=== PATIENT | female | born 1940 | race Caucasian/White ===

== ENCOUNTER 2017-09-22 15:20 | Inpatient (IN) | payer BC, MEDICARE ==
[2017-09-22] MEDS ORDERED: 0.9 % SODIUM CHLORIDE 1,000 ML BAG IV ONE (15:51)
[2017-09-22] MEDS ORDERED: ONDANSETRON HCL IV 4 MG/2 ML VIAL IVP ONE (15:58)
[2017-09-22] MEDS ORDERED: HYDROMORPHONE HCL 2 MG/ML VIAL IVP ONE ×2 (15:58→16:57)
--- NOTE | 2017-09-22 16:20 | Emergency Department Record ---
History of Present Illness - General Chief complaint: Pain Stated complaint: CANCER PAIN Time Seen by Provider: 09/22/17 15:22 Mode of Arrival: Stretcher - History of Present Illness Initial comments: patient having vaginal and lower abd pain and she has a uterine tumor Onset/Timin -: Week(s) Severity scale (1-10): 10 Consistency: Constant Improves with: Nothing Worsens with: Nothing Associated Symptoms: Denies other symptoms - Related Data Home Medications Medication Instructions Recorded Confirmed Last Taken Amitriptyline HCl [Elavil] 25 mg PO QPM 09/22/17 09/22/17 Unknown Cranberry 400 mg PO QPM 09/22/17 09/22/17 Unknown Diazepam [Valium] 5 mg PO QPM 09/22/17 09/22/17 Unknown Hydrochlorothiazide [Hctz] 25 mg PO QAM 09/22/17 09/22/17 Unknown Lactulose 10 gm PO TID 09/22/17 09/22/17 Unknown Magnesium 200 mg PO DAILY 09/22/17 09/22/17 Unknown Metaxalone [Skelaxin] 800 mg PO QPM 09/22/17 09/22/17 Unknown [place]-3 Fatty Acids/Fish Oil [Fish 1 each PO QPM 09/22/17 09/22/17 Unknown Oil 1,000 mg Capsule] Oxycodone HCl 15 mg PO Q4H 09/22/17 09/22/17 Unknown Previous Rx's Medication Instructions Recorded Oxycodone HCl [Oxycodone HCl ER] 10 mg PO Q12H #60 tab.er 09/22/17 Allergies Allergy/AdvReac Type Severity Reaction Status Date / Time Beta-Blockers Allergy Intermediate DIFFICULTY Verified 09/22/17 15:27 (Beta-Adrenergic Bloc BREATHING sulfasalazine Allergy Intermediate DIFFICULTY Verified 09/22/17 15:27 BREATHING Travel Screening - Travel/Exposure Within Last 30 Days Have you traveled within the last 30 days?: No Review of Systems Reviewed: No additional complaints except as noted below Constitutional: Reports: As per HPI. Denies: Chills, Fever, Malaise, Night sweats, Weakness, Weight change Eyes: Reports: As per HPI. Denies: Eye discharge, Eye pain, Photophobia, Vision change ENT: Reports: As per HPI. Denies: Congestion, Dental pain, Ear pain, Epistaxis , Hearing loss, Throat pain Respiratory: Reports: As per HPI. Denies: Cough, Dyspnea, Hemoptysis, Stridor, Wheezes Cardiovascular: Reports: As per HPI. Denies: Arrhythmia, Chest pain, Dyspnea on exertion, Edema, Murmurs, Orthopnea, Palpitations, Paroxysmal nocturnal dyspnea, Rheumatic Fever, Syncope Endocrine: Reports: As per HPI. Denies: Fatigue, Heat or cold intolerance, Polydipsia, Polyuria Gastrointestinal: Reports: As per HPI. Denies: Abdominal pain, Constipation, Diarrhea, Hematemesis, Hematochezia, Melena, Nausea, Vomiting Genitourinary: Reports: As per HPI. Denies: Abnormal menses, Discharge, Dyspareunia, Dysuria, Frequency, Hematuria, Incontinence, Retention, Urgency Musculoskeletal: Reports: As per HPI. Denies: Arthralgia, Back pain, Gout, Joint swelling, Myalgia, Neck pain Skin: Reports: As per HPI. Denies: Bruising, Change in color, Change in hair/ nails, Lesions, Pruritus, Rash Neurological: Reports: As per HPI. Denies: Abnormal gait, Confusion, Headache, Numbness, Paresthesias, Seizure, Tingling, Tremors, Vertigo, Weakness Psychiatric: Reports: As per HPI. Denies: Anxiety, Auditory hallucinations, Depression, Homicidal thoughts, Suicidal thoughts, Visual hallucinations Hematological/Lymphatic: Reports: As per HPI. Denies: Anemia, Blood Clots, Easy bleeding, Easy bruising, Swollen glands Past Medical History - SOCIAL HISTORY Smoking Status: Never smoker Alcohol Use: None Drug Use: None - RESPIRATORY Hx Respiratory Disorders: Yes Hx Dyspnea: Yes (on exertion) Hx Sleep Apnea: Yes Hx of CPAP: Yes - CARDIOVASCULAR Hx Cardio Disorders: Yes Hx Abnormal EKG: Yes Hx Hypertension: Yes Hx Irregular Heartbeat: Yes (Afib, PVC's) - NEURO Hx Neuro Disorders: Yes Hx Neuropathy: Yes (C3-C4 right side) - GI Hx GI Disorders: Yes Hx Reflux: Yes (barretts) Hx Liver Disease: Yes (mass) - Hx Genitourinary Disorders: Yes Hx Bladder Problem: Yes (Stress incont.) - ENDOCRINE Hx Endocrine Disorders: Yes Hx Thyroid Disease: Yes (Hypotyroid) - MUSCULOSKELETAL Hx Musculoskeletal Disorders: Yes Hx Arthritis: Yes Hx Back Injury: Yes Hx Osteoporosis: Yes - PSYCH Hx Psych Problems: Yes Hx Depression: Yes - HEMATOLOGY/ONCOLOGY Hx Hematology/Oncology Disorders: Yes Hx Anemia: Yes Hx Chemotherapy: Yes (04/24/16, endometrial) Family Medical History Any Significant Family History?: Yes Hx Anxiety: Brother/Sister Hx Cancer: Grandparents Hx Heart Disease: Father, Mother Hx HTN: Father, Mother Physical Exam - General General Appearance: Alert, Oriented x3, Cooperative, No acute distress - Head Head exam: Normal inspection - Eye Eye exam: Normal appearance, PERRL Pupils: Normal accommodation - ENT ENT exam: Normal exam, Mucous membranes moist, Normal external ear exam, Normal orophraynx, TM's normal bilaterally Ear exam: Normal external inspection. negative: External canal tenderness Nasal Exam: Normal inspection. negative: Discharge, Sinus tenderness Mouth exam: Normal external inspection, Tongue normal Teeth exam: Normal inspection. negative: Dental caries Throat exam: Normal inspection. negative: Tonsillar erythema, Tonsillar exudate - Neck Neck exam: Normal inspection, Full ROM. negative: Tenderness - Respiratory Respiratory exam: Normal lung sounds bilaterally. negative: Respiratory distress - Cardiovascular Cardiovascular Exam: Regular rate, Normal rhythm, Normal heart sounds - GI/Abdominal GI/Abdominal exam: Soft, Normal bowel sounds. negative: Tenderness - Rectal Rectal exam: Deferred - exam: Deferred - Extremities Extremities exam: Normal inspection, Full ROM, Normal capillary refill. negative: Tenderness - Back Back exam: Reports: Normal inspection, Full ROM. Denies: Muscle spasm, Rash noted, Tenderness - Neurological Neurological exam: Alert, Normal gait, Oriented X3, Reflexes normal - Psychiatric Psychiatric exam: Normal affect, Normal mood - Skin Skin exam: Dry, Intact, Normal color, Warm Course Vital Signs 09/22/17 15:23 Temperature 98.0 F Pulse Rate 86 Respiratory 20 Rate Blood Pressure 124/53 Pulse Ox 96 - Reevaluation(s) Reevaluation #1: family is requesting admission to [facility] and they want pain control. 09/22/17 18:44 Medical Decision Making - Lab Data Result diagrams: 09/22/17 15:50 09/22/17 15:50 Disposition Clinical Impression: Abdominal pain Qualifiers: Abdominal location: lower abdomen, unspecified Qualified Code(s): R10.30 - Lower abdominal pain, unspecified Uterine cancer Qualifiers: Malignant neoplasm of uterus location: unspecified site of uterus Qualified Code(s): C55 - Malignant neoplasm of uterus, part unspecified Decision to Admit: Admit from ER Condition: (1) Good Prescriptions: Oxycodone HCl [Oxycodone HCl ER] 10 mg PO Q12H #60 tab.er Forms: Patient Portal Access Time of Disposition: 18:44 Quality - Quality Measures Quality Measures: N/A - Blood Pressure Screening Does Patient Have Any of the Following: No Blood Pressure Classification: Pre-Hypertensive BP Reading Systolic Measurement: 124 Diastolic Measurement: 53 Screening for High Blood Pressure: < Pre-Hypertensive BP, F/U Documented > [ [id number]] Pre-Hypertensive Follow-up Interventions: Referral to alternative/primary care provider.
[2017-09-22 16:27] LABS: HEMATOCRIT 29.5 % (35.0-47.0); HEMOGLOBIN 8.9 gm/dl (11.6-16.0); MEAN CELL VOLUME 106.1 fl (81-97); MEAN CORPUSCULAR HGB CONC 30.2 g/dl (32-36); PLATELET COUNT 130 K/uL (130-400); RED BLOOD COUNT 2.78 M/uL (3.80-5.40); RED CELL DISTRIBUTION WIDTH 18.5 % (11.5-14.5); WHITE BLOOD COUNT W/O DIFF 8.4 K/uL (4.2-12.2)
[2017-09-22 16:40] LABS: BLOOD UREA NITROGEN 12 mg/dL (8-23); CREATININE 0.5 mg/dL (0.5-0.9); EST GLOMERULAR FILTRATION RATE > 60 mL/min
[2017-09-22 16:41] LABS: TOTAL PROTEIN 6.1 g/dL (6.6-8.7)
[2017-09-22 16:43] LABS: GLUCOSE,RANDOM 95 mg/dL (74-109)
[2017-09-22 16:45] LABS: ALT/SGPT 8 U/L (<33)
[2017-09-22 16:46] LABS: ALBUMIN 3.3 g/dL (4.0-5.0); ALKALINE PHOSPHATASE 50 U/L (35-104); AST/SGOT 16 U/L (10.0-35.0); LIPASE 8 U/L (13-60)
[2017-09-22 16:49] LABS: BILIRUBIN,DIRECT < 0.2 mg/dL (0-0.3)
[2017-09-22] MEDS ORDERED: ONDANSETRON 4 MG ODT TABLET PO PRN (19:05)
[2017-09-22] MEDS ORDERED: HYDROMORPHONE HCL 2 MG/ML VIAL IVP PRN (19:57)
[2017-09-22] MEDS: OXYCODONE HCL 5 MG TABLET PO SCH ×2 (20:30→23:30)
[2017-09-22] MEDS: DIAZEPAM 5 MG TABLET PO SCH (20:31)
[2017-09-22] MEDS ORDERED: DICLOFENAC SODIUM PO SCH (22:00)
[2017-09-22] MEDS ORDERED: MISOPROSTOL PO SCH (22:00)
[2017-09-22] MEDS: FLECAINIDE ACETATE 50 MG TABLET PO SCH (22:01)
[2017-09-22] MEDS: APIXABAN 5MG TABLET PO SCH (22:02)
[2017-09-22] MEDS: CYCLOBENZAPRINE 10MG TABLET PO SCH (22:08)
[2017-09-22] MEDS ORDERED: ZINC OXIDE 28.35 GM TUBE TOP PRN (22:53)
[2017-09-23] MEDS: OXYCODONE HCL 5 MG TABLET PO SCH ×2 (04:32→08:12)
[2017-09-23] MEDS ORDERED: OXYCODONE SR 10 MG TAB.ER.12H PO SCH ×2 (08:00→10:15)
[2017-09-23] MEDS ORDERED: LISINOPRIL 10 MG TABLET PO SCH (10:00)
[2017-09-23] MEDS ORDERED: VENLAFAXINE ER 75 MG CAPSULE PO SCH (10:00)
[2017-09-23] MEDS ORDERED: THYROID PORK 60 MG PO SCH (10:00)
[2017-09-23] MEDS ORDERED: LORAZEPAM 2 MG/ML VIAL IV ONE (10:02)
[2017-09-23] MEDS: FLECAINIDE ACETATE 50 MG TABLET PO SCH ×2 (10:09→21:16)
[2017-09-23] MEDS: APIXABAN 5MG TABLET PO SCH ×2 (10:09→21:15)
[2017-09-23] MEDS: CYCLOBENZAPRINE 10MG TABLET PO SCH (10:09)
[2017-09-23] MEDS ORDERED: LORAZEPAM 0.5 MG TABLET PO PRN (10:12)
[2017-09-23] MEDS: OXYCODONE HCL 5 MG TABLET PO PRN ×5 (11:33→23:19)
[2017-09-23] MEDS: OXYCODONE SR 20 MG TAB.ER.12H PO SCH ×2 (12:01→21:17)
[2017-09-23] MEDS ORDERED: PSYLLIUM HUSK/ASPARTAME 3.4 GM POWD.PACK PO SCH (14:45)
[2017-09-23] MEDS ORDERED: AMITRIPTYLINE 25 MG TABLET PO SCH ×2 (17:00→22:00)
[2017-09-23] MEDS ORDERED: PSYLLIUM HUSK/ASPARTAME 3.4 GM POWD.PACK PO PRN (17:47)
[2017-09-23] MEDS: LACTULOSE 20 GM/30 ML UDC PO PRN (17:51)
[2017-09-23] MEDS: DIAZEPAM 5 MG TABLET PO SCH (17:57)
[2017-09-23 20:03] LABS: URINE APPEARANCE CLEAR; URINE BILIRUBIN NEGATIVE (NEGATIVE); URINE BLOOD LARGE (NEGATIVE); URINE COLOR YELLOW; URINE GLUCOSE (UA) NEGATIVE (NEGATIVE); URINE KETONE TRACE (NEGATIVE); URINE LEUKOCYTE ESTERASE MODERATE (NEGATIVE); URINE NITRITE NEGATIVE (NEGATIVE); URINE PROTEIN TRACE (NEGATIVE); URINE UROBILINOGEN 0.2 E.U./dL (0.20 - 1.00)
[2017-09-23] MEDS ORDERED: DIAZEPAM 5 MG TABLET PO SCH (22:00)
[2017-09-24] MEDS: OXYCODONE HCL 5 MG TABLET PO PRN ×2 (04:26→07:48)
--- NOTE | 2017-09-24 07:21 | Discharge Note ---
VTE H&P Assessment - Risk for VTE Risk for VTE: Yes Risk Level: Moderate Risk Assessment Date: 09/22/17 Risk Assessment Time: 19:00 VTE Orders Placed or Will Be Placed: Yes Discharge Medications - Discharge Medications Prescriptions: Oxycodone HCl [Oxy Ir] 15 mg PO Q3HR PRN #60 tablet PRN Reason: Analgesia Oxycodone HCl [Oxycodone HCl ER] 10 mg PO Q12H #60 tab.er Oxycodone HCl [Oxycontin] 20 mg PO Q12H #60 tab.er.12h Home Medications: Ambulatory Orders Apixaban [Eliquis] 5 mg PO BID 10/14/14 [Last Taken 05/27/16] Diclofenac Sodium/Misoprostol [Arthrotec 75 mg-200 Mcg Tab] 1 each PO BID [Last Taken 05/27/16] Lisinopril 10 mg PO DAILY 10/14/14 [Last Taken 05/27/16] Thyroid,Pork [[place] Thyroid] 60 mg PO DAILY 10/14/14 [Last Taken 05/27/16] Venlafaxine HCl [Effexor Xr] 150 mg PO DAILY 10/14/14 [Last Taken 05/27/16] Flecainide Acetate 100 mg PO BID 04/28/16 [Last Taken 05/27/16] Ondansetron [Zofran Odt] 4 mg PO Q6H PRN 04/28/16 [Last Taken 05/27/16] Amitriptyline HCl [Elavil] 25 mg PO QPM 09/22/17 [Last Taken Unknown] Cranberry 400 mg PO QPM 09/22/17 [Last Taken Unknown] Diazepam [Valium] 5 mg PO QPM 09/22/17 [Last Taken Unknown] Hydrochlorothiazide [Hctz] 25 mg PO QAM 09/22/17 [Last Taken Unknown] Lactulose 10 gm PO TID 09/22/17 [Last Taken Unknown] Magnesium 200 mg PO DAILY 09/22/17 [Last Taken Unknown] Metaxalone [Skelaxin] 800 mg PO QPM 09/22/17 [Last Taken Unknown] [place]-3 Fatty Acids/Fish Oil [Fish Oil 1,000 mg Capsule] 1 each PO QPM 09/22/17 [Last Taken Unknown] Oxycodone HCl 15 mg PO Q4H 09/22/17 [Last Taken Unknown] Oxycodone HCl [Oxycodone HCl ER] 10 mg PO Q12H #60 tab.er 09/22/17 [Last Taken Unknown] Oxycodone HCl [Oxy Ir] 15 mg PO Q3HR PRN #60 tablet 09/24/17 [Last Taken Unknown ] Oxycodone HCl [Oxycontin] 20 mg PO Q12H #60 tab.er.12h 09/24/17 [Last Taken Unknown] Discharge Note - Date Date of Discharge Note: 09/24/17 Condition: (1) Good Additional Instructions: follow up with Dr. Edward Triplett in one week her primary Dr. follow up [facility] Dr. Up as scheduled follow up with pallative care as scheduled CT today as ordered by oncology at [facility] Use lactulose three times a day metamucil twice a day also may use dulcolax pills 5 mg if having constipation problems use long acting oxycodone ER 20 mg twice a day use short acting oxycodone IR every 3 hours if necessary may spread this out if not having pain. Prescriptions: Oxycodone HCl [Oxy Ir] 15 mg PO Q3HR PRN #60 tablet PRN Reason: Analgesia Oxycodone HCl [Oxycodone HCl ER] 10 mg PO Q12H #60 tab.er Oxycodone HCl [Oxycontin] 20 mg PO Q12H #60 tab.er.12h Referrals: EDWARD TOMLINSON [Primary Care Provider] - Forms: Patient Portal Access
[2017-09-24] MEDS: LACTULOSE 20 GM/30 ML UDC PO PRN (07:51)
[2017-09-24] MEDS: OXYCODONE SR 20 MG TAB.ER.12H PO SCH (09:20)
--- NOTE | 2017-09-24 12:50 | History and Physical Report ---
DATE OF ADMISSION: 09/22/2017 CHIEF COMPLAINT: Pelvic pain. HISTORY OF PRESENT ILLNESS: This is a 77-year-old female with uterine cancer with metastasis to the perineum with tumor and chronic pelvic. The patient is being treated currently with Dr. Robles. Has had 3 courses of different chemotherapy and it does not seem to be helping. She is planning to see Palliative Care on 10/02/2017 for pain control and they are debating on doing an experimental another course of chemotherapy. The patient is considering going into hospice care at this time. According to the night nurse, decided to go into hospice care at home. However, when I talked to her this morning, she wants to follow through with pain control and palliative care and see Dr. Robles. PAST MEDICAL HISTORY: Uterine cancer with metastasis to the perineum, obstructive sleep apnea, uses CPAP, Afib and on Eliquis, chronic back pain with multiple back surgeries, GERD with Coronado's disease, liver mass, urinary stress incontinence from her pelvic tumor, hypothyroidism, arthritis, osteoporosis, anxiety, anemia multifactorial possibly from chemotherapy. PAST SURGICAL HISTORY: Hysterectomy due to cancer in 2014, back surgery x4 between 2010 and 2011, T&A, D&C, hemorrhoidectomy. MEDICATIONS: 1. Lactulose. She is taking 10 g t.i.d. 2. [place] 3 fatty acids 1 a day. 3. Magnesium 200 mg daily. 4. Valium 5 mg at h.s. 5. Cranberries 400 a day at night. 6. Skelaxin 800 mg at night. 7. Effexor 150 mg daily. 8. Thyroid [place] type 60 mg daily. 9. Oxycodone 50 mg q.3-4 h. p.r.n. pain. 10. Lisinopril 10 mg daily. 11. Hydrochlorothiazide 25 mg daily. 12. Flecainide acetate 100 mg b.i.d. 13. Arthrotec 1 tablet b.i.d. and 75/200. 14. Eliquis 5 mg b.i.d. 15. Elavil 25 mg q.p.m. 16. Zofran 4 mg q.6 h. p.r.n. 17. OxyIR that we started here. ALLERGIES: BETA-BLOCKERS, SULFASALAZINE. Both of these agents cause some problems with breathing. FAMILY/PSYCHOSOCIAL HISTORY: She never smoked. No alcohol or drug use. Cancer in the grandparents. Father and mother had heart disease. Father and mother had hypertension. REVIEW OF SYSTEMS: HEENT: No upper respiratory infection symptoms, cough, cold, or congestion. Cardiovascular: No chest pain, palpitations, or arrhythmia. Respiratory: No cough, cold, or congestion. Gastrointestinal: No nausea, vomiting, diarrhea. She ate breakfast this morning. She does have pelvic pain in the perineum. Genitourinary: No dysuria, hematuria, frequency, or burning on urination. She is incontinent of urine from her pelvic mass and she is incontinent of stool and she cannot give us a urine sample, and she tells us nobody can catheterize her because they cannot find the opening of the urethra. Musculoskeletal: She is moving all 4 extremities. She has chronic back pain. Neurological: No CVA, paralysis, or paresthesias. [employer]: She has uterine cancer with metastasis to the perineum. Endocrine: She has hypothyroidism. No diabetes. Integument: No rash, ulcers, or change in moles. PHYSICAL EXAMINATION: VITALS: Height 5 feet 4 inches, weight 169 pounds. Temperature 98.3, pulse 84, blood pressure 97/57, respiratory rate 20, pulse ox 93% on room air. HEENT: Pupils are equal, round, and reactive to light and accommodation. Extraocular muscles are intact. Throat is clear. Nose is clear. Tympanic membranes are val[place]. NECK: Supple. No jugular venous distention. No hepatojugular reflux. No carotid bruits. Thyroid is smooth. CARDIOVASCULAR: Regular rate and rhythm without murmurs, clicks, rubs, or gallops. RESPIRATORY: Clear to auscultation and percussion. ABDOMEN: Soft, nontender. No hepatosplenomegaly, no masses, no pain on palpation. No bruits. EXTREMITIES: No pitting edema. No cyanosis, no clubbing. Full range of motion. Peripheral pulses are good. BREASTS: Deferred. GYNECOLOGICAL: Deferred. RECTAL: She had no stool on examining digital exam. She had mucus light in color. She had a large mass that was palpated in the perineum anteriorly from the rectum. NEUROLOGIC: Cranial nerves II-XII intact. No gross defects. Sensation normal, strength normal. Deep tendon reflexes equal bilaterally with Babinski negative. MENTAL STATUS: Alert and oriented x3. IMPRESSION: 1. Uterine cancer with metastasis to the perineum and a mass. 2. Pelvic pain. 3. History of atrial fibrillation, on Eliquis. 4. Anxiety and depression. 5. Arthritis. 6. Hypothyroidism. PLAN: Try to optimize pain control and either Hospice or Palliative Care. Will be following up with Dr. Robles. INPATIENT CERTIFICATION: Admit to inpatient care. Based on my medical assessment, after consideration of patient's risk factors, age, comorbidities, and patient's presenting symptoms and acuity, I expect that this patient will remain in the hospital greater than or equal to 2 midnights and that the services needed warrant inpatient care because of severe pelvic pain and uterine cancer. Estimated length of stay is 3 days. The patient may reasonably be expected to be discharged or transferred to a hospital within 96 hours after admission to [facility]. I certify that my determination is in accordance with my understanding of Medicare requirements for reasonable and necessary inpatient services. SASKIA
--- NOTE | 2017-09-28 09:10 | Discharge Summary ---
DATE OF DISCHARGE: 09/24/2017 DATE OF ADMISSION: 09/22/2017 DISCHARGE DIAGNOSES: 1. Pelvic pain. 2. Uterine cancer with metastasis to the perineum with a mass in the perineum. 3. History of atrial fibrillation and on Eliquis. 4. Anxiety and depression. 5. Arthritis. 6. Hypothyroidism. ATTENDING PHYSICIAN: Shorty Cole DO REASON FOR HOSPITALIZATION: Pelvic pain. This 77-year-old female with uterine cancer with metastasis to the perineum with tumor and chronic pain. The patient being treated currently with Dr. Robles, has had 3 courses of different chemotherapy and she states it does not seem to be helping. She is planning to see Palliative Care on 10/02/2017 for pain control and they are debating on doing an experimental another course of chemotherapy. The patient is considering going to hospice or going through the therapy. She was admitted to the hospital for pain control. Current pain medication before admission was oxycodone IR 50 mg q.3-4 h. The family states they seem to be not keep getting control with this regimen. SIGNIFICANT FINDINGS: WBC 8400, hemoglobin 8.9. She was transfused recently when she was less than 7. She has no signs of bleeding. She is having loose stools and incontinent of stool and urine. Platelet count 130,000. Sodium 136, potassium 4.3, chloride 96, BUN 12, creatinine 0.5. The liver enzymes are normal. Total protein is 6.1, albumin is low at 3.3, lipase 8. Urine was contaminated. It was not a good catch but it was sent showing moderate leukocytes and grew out mixed karol. We discussed doing a CT scan; however, since she is being followed by Oncology, the CT scan at our institution would be hard to compare to the CT scan at [facility]. I recommended that she keep her outpatient CT scan appointment so they can easily compare the prior CT scan with this CT scan to see if there is progression or not of her disease, so no x-rays were ordered here in this hospitalization. It was just for pain control. THERAPY PROVIDED: The patient was started on OxyContin 10 mg twice a day. That did not seem to control her pain. We moved her up to 20 mg twice a day with the OxyIR 50 m g q.3-4 h. p.r.n. which seemed to be working better than just the IR medications. We also added some Ativan at one point when she was very anxious but she did not continue that. She was doing much better with this regimen and we discharged her to follow up with her CT scan outpatient and her palliative care appointment so they can do more pain control. She does want to follow through with Dr. Robles with another course of therapy. The family and the talked her into continuing treatment on her cancer. DISCHARGE INSTRUCTIONS: Follow up with Dr. Rolanda Cruz, her primary care physician, who could also help optimize her pain control. Follow up with Dr. Robles as scheduled. Follow up with palliative care clinic as scheduled. Continue medications. Pain control is going to be oxycodone IR 50 mg q.3 h. p.r.n. pain, oxycodone extended release 20 mg b.i.d. Her home medication will be Eliquis 5 mg b.i.d., Arthrotec 1 b.i.d., lisinopril 10 mg daily, [place] Thyroid 60 mg daily, Effexor XR 150 mg daily, flecainide acetate 100 mg b.i.d., Zofran 4 mg q.6 h. p.r.n., Elavil 25 mg at h.s., cranberry pills 400 mg q.p.m., Valium 5 mg at h.s., hydrochlorothiazide 25 mg q.a.m., lactulose 10 g t.i.d. to keep herself from getting constipated, magnesium 200 mg daily, Skelaxin 800 mg p.m., omega fish oil 1000 mg 1 daily. Also, she could use Dulcolax pills if she is having a more constipation problem. Also recommend using Metamucil twice a day. MTDD
== END 2017-09-24 09:50 | disposition home or self-care (01) | DRG 756 ==
LOC: ER 15:20 → OBSVTOIN 19:51 → MEDSURG 19:51
PROVIDERS: ADMIT Emergency Medicine; ATTEND Emergency Medicine
DX: C54.1 Malignant neoplasm of endometrium (principal); I48.91 Unspecified atrial fibrillation; Z79.01 Long term (current) use of anticoagulants; I10 Essential (primary) hypertension; E03.9 Hypothyroidism, unspecified; D64.9 Anemia, unspecified; M19.90 Unspecified osteoarthritis, unspecified site; Z90.710 Acquired absence of both cervix and uterus
CPT/HCPCS: 80048; 80076; 81001; 82310; 83690; 85027; 96374; 96375; 96376; 99217; 99223; 99285; J2405; J7030